=== PATIENT | male | born 1960 | race Caucasian/White ===

== ENCOUNTER 2022-04-24 15:49 | Inpatient (IN) | payer OTHER, SELFPAY ==
[2022-04-24] VITALS (16 sets, daily range): BP systolic 108–151; BP diastolic 65–112; PULSE 89–117; RESP 16–36; TEMP 36.4–36.8; O2SAT 78–100; BMI 25.2
--- NOTE | 2022-04-24 15:55 | XRR_ITS ---
PROCEDURE INFORMATION: Exam: XR Chest Exam date and time: 04/24/2022 5:34 PM Age: 61 years old Clinical indication: Cough and dyspnea; Additional info: Dyspnea/cough TECHNIQUE: Imaging protocol: Radiologic exam of the chest. Views: 1 view. COMPARISON: No relevant prior studies available. FINDINGS: Tubes, catheters and devices: Right chest port terminates at the cavoatrial junction. Lungs: Unremarkable. No consolidation. Pleural spaces: Unremarkable. No pleural effusion. No pneumothorax. Heart/Mediastinum: Unremarkable. No cardiomegaly. Bones/joints: Unremarkable. XR/XR chest 1V portable [id number] IMPRESSION: No acute findings.
--- NOTE | 2022-04-24 16:12 | ECG_ITS ---
[facility] Test Date: 2022-04-24 Pat Name: Eamon Sawant Department: Room: Gender: Male Property Site Manager: : 1960 Requested By: Roderick Lackey Order Number: [id number] Micaela MD: Светлана Thornton M.D. Measurements Intervals [place] Rate: 103 P: 82 AL: 154 QRS: 84 QRSD: 89 T: 70 QT: 315 QTc: 414 Interpretive Statements SINUS TACHYCARDIA ABNORMAL RHYTHM ECG No previous ECG available for comparison Electronically Signed On 04-24-2022 20:38:07 CALCULATION REVIEWER by Светлана Thornton M.D. [id number]
[2022-04-24] MEDS: sodium chloride 0.9% 1,000 ML 999 ML IV ×2 (16:22→17:59)
[2022-04-24 16:47] LABS: Basophils # 0.1 10^3/uL (0.0-0.1); Basophils % 0.5 %; Eosinophils # 0.1 10^3/uL (0.0-0.8); Eosinophils % 0.6 %; Hematocrit 31.4 % (42.0-52.0); Hemoglobin 9.2 g/dL (11.7-16.6); Lymphocytes % 7.8 %; Mean Corpuscular HGB Conc 29.3 g/dL (30.0-36.0); Mean Corpuscular Volume 78.5 fl (80-94); Mean Platelet Volume 9.1 fL (7.4-10.4); Monocytes # 0.5 10^3/uL (0.2-0.9); Monocytes % 3.8 %; Neutrophils # 10.93 10^3/uL (1.8-7.7); Neutrophils % 86.7 %; Nucleated Red Blood Cells % 0 %; Platelet Count 563 10^3/cmm (130-400); Red Cell Distribution Width 16.7 % (12.1-15.1); White Blood Count 12.6 10^3/uL (4.0-10.0)
[2022-04-24 17:25] LABS: Alanine Aminotransferase 18 U/L (0-41); Alkaline Phosphatase 189 U/L (40-130); Aspartate Amino Transferase 30 U/L (0-40); Blood Urea Nitrogen 18 mg/dL (8-23); Calcium 11.5 mg/dL (8.5-10.5); Carbon Dioxide 26 mmol/L (22-29); Chloride 96 mmol/L (98-107); Globulin 4.7 g/dL (1.3-4.6); Glomerular Filtration Rate 68.1 mL/min (90-130); Glucose 112 mg/dL (65-115); Lipase 7 U/L (13-60); Osmolality Calculated 277 mOsm/kg (285-295); Sodium 132 mmol/L (136-145); Total Bilirubin 0.3 mg/dL (0.15-1.2); Total Protein 7.7 g/dL (6.6-8.7)
--- NOTE | 2022-04-24 17:27 | W.ED.GENADLT ---
HPI - General Adult General: Chief complaint: Altered Mental Status Stated complaint: AMS Time Seen by Provider: 04/24/22 15:51 Source: patient Mode of arrival: ambulatory History of Present Illness: 61-year-old male presents to the emergency room from home with hospice. Had evidently been cared for by a family member who was killed in a car accident yesterday the hospice nurse came to check on the patient and found the patient on the floor and evidently been there for nearly 24 hours. He has a fentanyl patch and he has been using oxycodone. He has a history of HPV penile cancer which she has evidently opted not to treat. He is on hospice for this. Hospice nurse present in the ER states last time she seen the patient was 4 days ago. EMS reported they took the fentanyl patch off when they arrived there. They also reported a nearly empty bottle of narcotics nearby. Onset (ago): unknown Review of Systems General: Reports: ROS unobtainable due to mental status PFSH ED PFSH: Medical History (Updated 04/25/22 @ 07:39 by Roderick Yip DO) GERD (gastroesophageal reflux disease) HPV in male Penile cancer Physical deconditioning Restless leg Surgical History (Updated 04/24/22 @ 20:58 by Radha Pena MD) Surgical history unknown Family History (Updated 04/24/22 @ 20:58 by Radha Pena MD) Denies family history of Chronic kidney disease (CKD) Social History (Updated 04/24/22 @ 20:58 by Radha Pena MD) Smoking and tobacco status: unknown if ever smoked Alcohol intake: unknown Substance/Drug Use: unknown Physical Exam HENMT: COMMON NORMALS: normocephalic, atraumatic and hearing grossly normal bilaterally HEAD & SCALP: normocephalic and atraumatic Resp: COMMON NORMALS: normal respiratory effort, No retractions, No use of accessory muscles and clear to auscultation bilaterally AUSCULTATION: clear to auscultation bilaterally Cardio: COMMON NORMALS: regular rate, regular rhythm and No murmurs present (Cardio) RATE: regular rate RHYTHM: regular rhythm GI: COMMON NORMALS: Soft to palpation and No hepatosplenomegaly present AUSCULTATION: Yes normoactive bowel sounds PALPATION: Yes Soft to palpation, No Tenderness to palpation present (GI), No Guarding due to palpation present (GI) and Yes No hepatosplenomegaly present : COMMON NORMALS: No no CVA tenderness BLADDER/KIDNEY EXAM: No no CVA tenderness Back/Pelvis: COMMON NORMALS: negative for no CVA tenderness OTHER: Stage I presacral ulcer. 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 Extremity: COMMON NORMALS: normal to inspection, capillary refill normal, no clubbing, cyanosis or edema, no calf tenderness and no pedal edema Skin: COMMON NORMALS: no rashes or lesions noted GENERAL SKIN EXAM: no rashes or lesions noted Course Vital Signs: Vital signs: Vital Signs Temperature 98.6 F 04/25/22 04:15 Pulse Rate 96 04/25/22 04:15 Respiratory Rate 20 H 04/25/22 04:15 Blood Pressure 125/72 04/25/22 04:15 Pulse Oximetry 95 04/25/22 04:15 Oxygen Delivery Me thod 04/25/22 04:15 Oxygen Flow Rate 3 04/24/22 16:30 MDM - General Adult Medical Decision [facility] was een by the hospice nurse last week and was ambulatory and verbal. His vitals are stable in the ER. I have not given narcan since the vitals are stable. Discussed with his daughter via phone. Patient is Do Not Recussitate. At this point after discussion we recommended admission observation IV fluids. Because of the distortion of the tissue of the penis symptoms we will be able to get an adequate urine sample. Discussed the hospitalist Dr. Geiger asked that we start Rocephin prophylactically cultures were drawn. Anticipate if he did take too much of the narcotics he should improve with time he stable with the oxygen support at this point so we can just observe if he does not improve can reassess. Daughter does not wish to have any aggressive interventions at this point. She does admit that recently he has made comments about harming himself. This occurred after he found out a lifelong friend who is his primary caregiver at this point had of a car accident the day before. There is a distinct possibility this may have been an intentional overdose. Medical Records I reviewed the patient's medical records. Lab Data I reviewed the patient's lab results. 04/24/22 16:20 04/24/22 16:20 Radiology Impressions Chest X-Ray 04/24/22 15:55 IMPRESSION: No acute findings. Head CT 04/24/22 17:54 IMPRESSION: 1. No acute intracranial abnormality. 2. Advanced diffuse cerebral atrophy. 3. 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 Laboratory Results WBC 12.6 10^3/uL (4.0-10.0) H 04/24/22 16:20 RBC 4.00 10^6/uL (4.1-5.3) L 04/24/22 16:20 Hgb 9.2 g/dL (11.7-16.6) L 04/24/22 16:20 Hct 31.4 % (42.0-52.0) L 04/24/22 16:20 MCV 78.5 fl (80-94) L 04/24/22 16:20 MCH 23.0 pg (28.0-34.0) L 04/24/22 16:20 MCHC 29.3 g/dL (30.0-36.0) L 04/24/22 16:20 RDW 16.7 % (12.1-15.1) H 04/24/22 16:20 Plt Count 563 10^3/cmm (130-400) H 04/24/22 16:20 MPV 9.1 fL (7.4-10.4) 04/24/22 16:20 Neut % (Auto) 86.7 % 04/24/22 16:20 Lymph % (Auto) 7.8 % 04/24/22 16:20 Tripp % (Auto) 3.8 % 04/24/22 16:20 Eos % (Auto) 0.6 % 04/24/22 16:20 Baso % (Auto) 0.5 % 04/24/22 16:20 Neut # (Auto) 10.93 10^3/uL (1.8-7.7) H 04/24/22 16:20 Lymph # (Auto) 1.0 10^3/uL (0.8-4.8) 04/24/22 16:20 Tripp # (Auto) 0.5 10^3/uL (0.2-0.9) 04/24/22 16:20 Eos # (Auto) 0.1 10^3/uL (0.0-0.8) 04/24/22 16:20 Baso # (Auto) 0.1 10^3/uL (0.0-0.1) 04/24/22 16:20 Nucleated RBC % (auto) 0 % 04/24/22 16:20 Nucleated RBCs # 0.0 /100WBC 04/24/22 16:20 Sodium 132 mmol/L (136-145) L 04/24/22 16:20 Potassium 4.0 mmol/L (3.5-5.1) 04/24/22 16:20 Chloride 96 mmol/L (98-107) L 04/24/22 16:20 Carbon Dioxide 26 mmol/L (22-29) 04/24/22 16:20 Anion Gap 14.0 (5-19) 04/24/22 16:20 BUN 18 mg/dL (8-23) 04/24/22 16:20 Creatinine 1.1 mg/dL (0.7-1.2) 04/24/22 16:20 GFR Calculation 68.1 mL/min (90-130) L 04/24/22 16:20 Glucose 112 mg/dL (65-115) 04/24/22 16:20 Calculated Osmolality 277 mOsm/kg (285-295) L 04/24/22 16:20 Calcium 11.5 mg/dL (8.5-10.5) H 04/24/22 16:20 Magnesium 2.0 mg/dL (1.7-2.3) 04/24/22 16:20 Total Bilirubin 0.3 mg/dL (0.15-1.2) 04/24/22 16:20 AST 30 U/L (0-40) 04/24/22 16:20 ALT 18 U/L (0-41) 04/24/22 16:20 Alkaline Phosphatase 189 U/L (40-130) H 04/24/22 16:20 Creatine Kinase 390 U/L (39-308) H* 04/24/22 16:20 Total Protein 7.7 g/dL (6.6-8.7) 04/24/22 16:20 Albumin 3.0 g/dL (3.5-5.2) L 04/24/22 16:20 Globulin 4.7 g/dL (1.3-4.6) H 04/24/22 16:20 Lipase 7 U/L (13-60) L 04/24/22 16:20 Procalcitonin 0.20 ng/mL (0-0.5) 04/24/22 16:20 Discharge Plan Discharge Patient Disposition: Admitted As Inpatient Admit Provider: Augusto Carey Clinical Impression: Delirium due to general medical condition, Metabolic encephalopathy, HPV in male, Hospice care, Metastasis to bone, Metastasis to lymph nodes Condition: Stable Coding Level of Care Code ED Financial Services Sales Representative for Chg Fwd Exam Detailed
[2022-04-24 17:33] LABS: Creatine Phosphokinase 390 U/L (39-308)
--- NOTE | 2022-04-24 17:54 | CTR_ITS ---
PROCEDURE INFORMATION: Exam: CT Head Without Contrast Exam date and time: 04/24/2022 6:06 PM Age: 61 years old Clinical indication: Altered mental status/memory loss; Patient HX: Patient found on the floor at home by hospice nurse. Patient non-verbal. No further history. ; Additional info: AMS TECHNIQUE: Imaging protocol: Computed tomography of the head without contrast. Radiation optimization: All CT scans at this facility use at least one of these dose optimization techniques: automated exposure control; mA and/or kV adjustment per patient size (includes targeted exams where dose is matched to clinical indication); or iterative reconstruction. COMPARISON: No relevant prior studies available. RADIATION DOSE METRICS: Total DLP (mGy-cm): 1107.23 FINDINGS: Brain: No hemorrhage. No edema. Advanced diffuse cerebral atrophy. 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 No mass effect. Cerebral ventricles: No ventriculomegaly. Paranasal sinuses: Visualized sinuses are unremarkable. No fluid levels. Mastoid air cells: Visualized mastoid air cells are well aerated. Bones/joints: Unremarkable. No acute fracture. Soft tissues: Unremarkable. CT/CT head wo con* [id number] IMPRESSION: 1. No acute intracranial abnormality. 2. Advanced diffuse cerebral atrophy. 3. 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
[2022-04-24] MEDS: cefTRIAXone 1,000 MG in sodium chloride 0.9% (plus) 50 ML 100 MG IV (18:42)
--- NOTE | 2022-04-24 19:13 | PM.HP ---
Providers/Chief Complaint Primary Care Provider: MARIA VICTORIA Newman Chief Complaint: AMS History of Present Illness Eamon Sawant is a 61 year old male who was sent to the hospital when daughter was not able to get in touch with him, patient has penile cancer, he was living with a senior physician who recently in a car accident. When I examined the patient there was a hospice nurse in the room, she is stating that patient normally is able to talk, able to eat on his own and walk without much assistance, recently he has become very fatigued and lethargic and bedbound that prompted his visit to the ER As per the hospice nurse patient mostly voids on his own, now family is requesting long-term placement with hospice At the time of my evaluation patient was able to tell me his name and state that he is feeling slightly better, he is still drowsy not able to provide much information Review of Systems General: Reports: ROS unobtainable due to medical condition Medications/Allergies Home Medications Medication Instructions Recorded Confirmed Last Taken Type bisacodyl 10 mg rectal suppository 10 mg NE DAILY PRN Constipation 04/24/22 04/24/22 Unknown History docusate sodium 100 mg capsule 200 mg PO BID PRN Constipation 04/24/22 04/24/22 Unknown History fentanyl 50 mcg/hr transdermal 50 mcg topical Q72H 04/24/22 04/24/22 Unknown History patch hydromorphone 4 mg tablet 4 - 8 mg PO Q4H PRN Pain 04/24/22 04/24/22 Unknown History lidocaine 4 % topical cream 1 applic topical DAILY PRN Pain 04/24/22 04/24/22 Unknown History (Anecream) loperamide 2 mg tablet 2 mg PO Q4H PRN Diarrhea 04/24/22 04/24/22 Unknown History magnesium citrate 300 ml PO DAILY PRN Constipation 04/24/22 04/24/22 Unknown History methylphenidate HCl 10 mg tablet 10 mg PO TID 04/24/22 04/24/22 Unknown History (Ritalin) morphine concentrate 100 mg/5 mL 5 - 20 mg PO Q1H PRN Pain 04/24/22 04/24/22 Unknown History (20 mg/mL) oral solution omeprazole 40 mg capsule,delayed 40 mg PO DAILY 04/24/22 04/24/22 Unknown History release polyethylene glycol 3350 17 17 g PO BID 04/24/22 04/24/22 Unknown History gram/dose oral powder (Miralax) sennosides 8.6 mg tablet (Kyra-annetta) 8.6 mg PO BID PRN Constipation 04/24/22 04/24/22 Unknown History Allergies Allergy/AdvReac Type Severity Reaction Status Date / Time iodine Allergy Unknown Unknown Verified 04/24/22 18:48 PFSH Acute PFSH: Medical History (Updated 04/24/22 @ 20:58 by Radha Pena MD) GERD (gastroesophageal reflux disease) HPV in male Penile cancer Physical deconditioning Restless leg Surgical History (Updated 04/24/22 @ 20:58 by Radha Pena MD) Surgical history unknown Family History (Updated 04/24/22 @ 20:58 by Radha Pena MD) Denies family history of Chronic kidney disease (CKD) Social History (Updated 04/24/22 @ 20:58 by Radha Pena MD) Smoking and tobacco status: unknown if ever smoked Alcohol intake: unknown Substance/Drug Use: unknown Vitals/I&O/Wt Last Vital Signs Temp 97.8 F 04/24/22 15:51 Pulse 90 04/24/22 19:03 Resp 24 H 04/24/22 19:03 BP 142/69 04/24/22 19:03 Pulse Ox 100 04/24/22 19:03 O2 Del Method 04/24/22 19:03 O2 Flow Rate 3 04/24/22 16:30 04/24/22 04/24/22 04/24/22 06:59 14:59 22:59 Intake Total 1000 / 1000 Balance 1000 / 1000 Weight last 48 hrs Weight 73.028 kg Physical Exam Narrative: Patient is debilitated, deconditioned Able to move his extremities Able to answer a few questions He was able to tell me his name and state that he is feeling slightly better Pupils are equal I did not notice asymmetry Abdomen soft however indurated abdominal wall with multiple warts, his warts were all filled with purulent material and urine Penile cancer cauliflower appearance Lower extremity no edema Patient looks dehydrated Oriented to himself S1, S2 On room air Data 04/24/22 16:20 04/24/22 16:20 A&P Assessment and plan (1) Hospice care: (2) Metabolic encephalopathy: (3) Metastasis to bone: (4) Metastasis to lymph nodes: Plan Metabolic encephalopathy Most likely related to underlying UTI Urine sample could not be obtained because of penile cancer Patient is voiding all over himself Purulent material noted lower abdominal wall Purulent cellulitis of abdominal wall I will start him on vancomycin and cefepime Start hospice care Keep him comfortable with opioids and bowel regimen Start IV fluids Case management to find a long-term for him with hospice Comfort measures only Attestations Medical Necessity Statement*: Anticipating discharge to long-term in next 48 hours Time Spent in Patient Care: 40 Coding Level of Care Code Acute Transfer Worker for g Fwd Diagnoses Hospice care Z51.5 Metabolic encephalopathy G93.41 Metastasis to bone C79.51 Metastasis to lymph nodes C77.9
[2022-04-24] MEDS: cefepime 1,000 MG in sodium chloride 0.9% (plus) 50 ML 100 MG IV (22:08)
[2022-04-24] MEDS: fentaNYL 50 mcg Patch 1 PATCH TRANSDERMA (22:08)
[2022-04-24] MEDS: morphine 10 mg/0.5 mL oral liq UD 5 MG PO (22:16)
[2022-04-24] MEDS: vancomycin 1,000 MG in sodium chloride 0.9% 250 ML 250 MG IV (22:49)
[2022-04-24] MEDS: dextrose 5%-sod chloride 0.45% 1,000 ML 100 ML IV (23:54)
[2022-04-25 04:15] VITALS: BP 125/72; PULSE 96; RESP 20; TEMP 37; O2SAT 95
[2022-04-25 07:52] VITALS: BP 129/75; PULSE 101; RESP 20; TEMP 36.7
--- NOTE | 2022-04-25 10:16 | PC.CHAP ---
Pastoral Care Encounter/Spiritual Assessment Type of Contact [] Declined hand bunch maker visit [] Patient/Family/Request visit [] Outpatient visit [] Follow-up visit [] Physician referral [] Code/Alert [x] Routine visit [] Staff referral [] Actively dying [x] Patient sleeping [] Family support [] [] Out of room [] Palliative care [] [] Receiving care in room [] Pre-surgical visit [] Trauma [] Long length of stay [] ICU visit [] Other: Relational/Emotional Strength [] Patient feels connected with others/family/visitors/staff [] Distress [] Loneliness/isolation [] Abandonment Spirituality of Patient [] Person of Sruthi [] Attends Zoroastrianism of their Sruthi [] Believes in Prayer [] Reads Bible or Yarsanism materials [] There are Spiritual issues to be addressed Transmission Maintenance Supervisor Interventions [] Prayer [] Active listening [] Non-anxious presence [] Spiritual/emotional support [] Crisis/trauma care [] Spiritual counseling [] Bereavement support [] Provided bereavement packet [] Provided Bible/devotional materials [] Provided toy/stuffed animal, coloring book to patient or family member [] Provided Communion [] Anointing/Harlan [] Salvation [] Completed spiritual assessment [] Other: Impact on Illness or Injury [] Angry [] Fearful [] Anxious [] Often cries [] Exhaustion [] Unable to work [] Unable to attend taoist [] Unable to walk/stand [] Unable to read [] Unable to drive [] Unable to eat/drink [] Unable to sleep [] Unable to be with family [] Patient intubated [] Other: Summary Time spent with patient
--- NOTE | 2022-04-25 10:27 | P.PN_ITS ---
Subjective Subjective: Patient is lethargic. He seems to deny any complaints including fevers, chills, chest pain or shortness of breath. Medications: Reviewed: Yes Vitals/I&O/Wt Last Vital Signs Temp 98.0 F 04/25/22 07:52 Pulse 101 H 04/25/22 07:52 Resp 20 H 04/25/22 07:52 BP 129/75 04/25/22 07:52 Pulse Ox 95 04/25/22 04:15 O2 Del Method 04/25/22 07:52 O2 Flow Rate 3 04/24/22 16:30 04/24/22 04/25/22 04/25/22 22:59 06:59 14:59 Intake Total 2099 250 / 2350 Output Total 0 / 0 Balance 2099 250 / 2350 Weight last 48 hrs Weight 73.142 kg Weight 73.028 kg Physical Exam Narrative: General: Patient is lethargic. Head: Normocephalic. Atraumatic. Neck: No JVD. Cardiovascular: No gallops. No murmurs. Tachycardic. Lungs: Breath sounds are course. Breath sounds diminished in bilateral bases. No use of accessory muscles, no crackles or wheezes. Skin: No jaundice. Abdomen: Hypoactive bowel sounds. Genito Urinary: Cancerous lesions with foul smelling drainage. Rectal: Rectal exam not performed since no symptoms indicated blood loss. Extremities: No cyanosis or clubbing. Musculoskeletal: Poor muscular development. Neurological: Moves all 4 extremities. No myoclonus. Data 04/24/22 16:20 04/24/22 16:20 Micro: Microbiology 04/24/22 19:00 Blood Culture - Preliminary Blood SPECIMEN COLLECTED A&P Assessment and plan (1) Penile cancer: HPV related Metastatic Apparently opted not to treat Previously on home hospice Caregiver is now Patient requires placement Comfort care measures (2) Delirium due to general medical condition: Reportedly not at baseline (3) Infection: Suspected inguinal/kaur area infection Change to oral antibiotics Follow up cultures (4) Metabolic encephalopathy: Frequent reorientation Antibiotics adjusted (5) Hospice care: Comfort care measures (6) Metastasis to lymph nodes: (7) Metastasis to bone: Plan Code status: DNR Attestations Medical Necessity Statement*: Patient requires ongoing medical care for titration of analgesics, antibiotics, and follow up cultures. Coding Level of Care Code Acute Research Technician for Chg Fwd Diagnoses Penile cancer C60.9 Delirium due to general medical condition F05 Infection B99.9 Metabolic encephalopathy G93.41 Hospice care Z51.5 Metastasis to lymph nodes C77.9 Metastasis to bone C79.51
[2022-04-25 11:35] VITALS: BP 126/65; PULSE 95; RESP 16; TEMP 36.7; O2SAT 100
[2022-04-25] MEDS: morphine 10 mg/0.5 mL oral liq UD 5 MG PO (13:18)
[2022-04-25 15:51] VITALS: BP 135/74; PULSE 107; RESP 16; TEMP 36.5; O2SAT 99
[2022-04-25] MEDS: doxycycline 100 mg Tablet PO (17:33)
[2022-04-25] MEDS: amoxicillin-clav 875-125 mg Tablet 1 TAB PO (17:33)
[2022-04-25 17:49] VITALS: RESP 17
[2022-04-25 20:00] VITALS: BP 113/65; PULSE 82; RESP 18; TEMP 36.9; O2SAT 95
[2022-04-26] VITALS (11 sets, daily range): BP systolic 114–125; BP diastolic 62–77; PULSE 79–103; RESP 16–18; TEMP 36.6–37.3; O2SAT 92–100
--- NOTE | 2022-04-26 07:03 | PC.NURSE ---
Report given to Chichi SCHAEFER at this time
--- NOTE | 2022-04-26 08:27 | PM.PN ---
Subjective Subjective: Patient is slightly more awake today. Much of his speech is difficult to comprehend at times. He denies any complaints. Denies nausea, emesis, fevers, or chills. Medications: Reviewed: Yes Vitals/I&O/Wt Last Vital Signs Temp 97.8 F 04/26/22 04:00 Pulse 100 04/26/22 04:00 Resp 18 04/26/22 04:00 BP 114/71 04/26/22 04:00 Pulse Ox 98 04/26/22 04:00 O2 Del Method 04/25/22 15:51 O2 Flow Rate 3 04/25/22 22:00 04/25/22 04/26/22 04/26/22 22:59 06:59 14:59 Intake Total 360 / 1260 Balance 360 / 1260 Weight last 48 hrs Weight 71.078 kg Weight 73.142 kg Weight 73.028 kg Physical Exam Narrative: General: Patient is awake. Frail appearing. Head: Normocephalic. Atraumatic. Neck: No JVD. Cardiovascular: No gallops. No murmurs. Tachycardic. Lungs: Breath sounds are course. Breath sounds diminished in bilateral bases. No use of accessory muscles, no crackles or wheezes. Skin: No jaundice. Abdomen: Normoactive bowel sounds. Not distended. Genito Urinary: Cancerous lesions with foul smelling drainage, similiar to prior exam. Rectal: Rectal exam not performed since no symptoms indicated blood loss. Extremities: No cyanosis or clubbing. Musculoskeletal: Poor muscular development. Neurological: Moves all 4 extremities. No myoclonus. Data 04/24/22 16:20 04/24/22 16:20 Micro: Microbiology 04/24/22 19:00 Blood Culture - Preliminary Blood NEGATIVE TO DATE A&P Assessment and plan (1) Penile cancer: HPV related Metastatic Apparently opted not to treat Previously on home hospice Caregiver is now Patient requires placement Comfort care measures (2) Delirium due to general medical condition: Mentation showing some improvement (3) Infection: Inguinal/kaur area infection Continue antibiotics (4) Metabolic encephalopathy: Frequent reorientation Treating underlying infection (5) Hospice care: Comfort care measures (6) Metastasis to lymph nodes: (7) Metastasis to bone: Plan Code status: DNR Attestations Medical Necessity Statement*: Patient requires ongoing medical care for analgesics, antibiotics, and follow up cultures. Coding Level of Care Code Acute Incident Response Engineer for Chg Fwd Diagnoses Penile cancer C60.9 Delirium due to general medical condition F05 Infection B99.9 Metabolic encephalopathy G93.41 Hospice care Z51.5 Metastasis to lymph nodes C77.9 Metastasis to bone C79.51
[2022-04-26] MEDS: amoxicillin-clav 875-125 mg Tablet 1 TAB PO ×2 (09:33→17:58)
[2022-04-26] MEDS: doxycycline 100 mg Tablet PO ×2 (09:33→17:58)
[2022-04-26] MEDS: morphine 10 mg/0.5 mL oral liq UD 5 MG PO (11:10)
[2022-04-26] MEDS: morphine IR 15 mg Tablet PO ×3 (11:11→23:20)
[2022-04-26] MEDS: ALPRAZolam 0.5 mg Tablet PO ×2 (11:39→23:20)
[2022-04-26] MEDS: HYDROmorphone 1 mg/mL INJ 1 mL 3 MG PO (21:25)
[2022-04-27] VITALS: BP 121/68; PULSE 105; RESP 20; TEMP 36.8; O2SAT 97
[2022-04-27 04:00] VITALS: BP 103/63; PULSE 91; RESP 16; TEMP 36.7; O2SAT 100
--- NOTE | 2022-04-27 07:30 | P.PN_ITS ---
Subjective Subjective: Patient reports pain is better controlled after analgesic regimen was adjusted yesterday. Endorses generalized pruritis. Denies fevers, chills, chest pain, nausea, or emesis. Medications: Reviewed: Yes Vitals/I&O/Wt Last Vital Signs Temp 98.1 F 04/27/22 04:00 Pulse 91 04/27/22 04:00 Resp 16 04/27/22 04:00 BP 103/63 04/27/22 04:00 Pulse Ox 100 04/27/22 04:00 O2 Del Method 04/25/22 15:51 O2 Flow Rate 3 04/25/22 22:00 04/26/22 04/27/22 04/27/22 22:59 06:59 14:59 Intake Total 480 / 960 480 / 1440 Balance 480 / 960 480 / 1440 Weight last 48 hrs Weight 71.078 kg Physical Exam Narrative: General: Patient is awake. Frail appearing. Head: Normocephalic. Atraumatic. Neck: No JVD. Cardiovascular: No gallops. No murmurs. Normal rate. Lungs: Breath sounds are diminished in bilateral bases. No use of accessory muscles, no crackles or wheezes. Skin: No jaundice. Abdomen: Normoactive bowel sounds. Not distended. Genito Urinary: Cancerous lesions with foul smelling drainage, similiar to prior exams. Rectal: Rectal exam not performed since no symptoms indicated blood loss. Extremities: No cyanosis or clubbing. Musculoskeletal: Poor muscular development. Neurological: Moves all 4 extremities. No myoclonus. Data 04/24/22 16:20 04/24/22 16:20 A&P Assessment and plan (1) Penile cancer: HPV related, metastatic Patient opted not to treat Previously on home hospice Caregiver is now Patient requires placement Comfort care measures Fentanyl patch dosing adjusted Adjusting oral opiate dosing (2) Delirium due to general medical condition: Mentation improving, suspect now close to baseline (3) Infection: Inguinal/kaur area infection Continue Augmentin Continue doxycycline (4) Metabolic encephalopathy: Mentation approaching baseline Treating underlying infection (5) Hospice care: Comfort care measures (6) Metastasis to lymph nodes: (7) Metastasis to bone: Plan Code status: DNR Attestations Medical Necessity Statement*: Patient requires ongoing medical care for analgesics, antibiotics, and supportive care. Coding Level of Care Code Acute Livestock Rancher for Chg Fwd Diagnoses Penile cancer C60.9 Delirium due to general medical condition F05 Infection B99.9 Metabolic encephalopathy G93.41 Hospice care Z51.5 Metastasis to lymph nodes C77.9 Metastasis to bone C79.51
[2022-04-27 08:40] VITALS: BP 96/60; PULSE 87; RESP 16; TEMP 36.8; O2SAT 99
[2022-04-27] MEDS: amoxicillin-clav 875-125 mg Tablet 1 TAB PO (09:34)
[2022-04-27 09:45] VITALS: RESP 20
[2022-04-27] MEDS: HYDROmorphone 1 mg/mL INJ 1 mL 3 MG PO (09:45)
--- NOTE | 2022-04-27 09:51 | PC.CHAP ---
Pastoral Care Encounter/Spiritual Assessment Type of Contact [] Declined job training specialist visit [] Patient/Family/Request visit [] Outpatient visit [] Follow-up visit [] Physician referral [] Code/Alert [x] Routine visit [] Staff referral [] Actively dying [] Patient sleeping [] Family support [] [] Out of room [] Palliative care [] [x] Receiving care in room [] Pre-surgical visit [] Trauma [] Long length of stay [] ICU visit [] Other: Relational/Emotional Strength [] Patient feels connected with others/family/visitors/staff [] Distress [] Loneliness/isolation [] Abandonment Spirituality of Patient [] Person of Sruthi [] Attends Cheondoism of their Sruthi [] Believes in Prayer [] Reads Bible or Yarsanism materials [] There are Spiritual issues to be addressed Salt Operator Interventions [x] Prayer [] Active listening [] Non-anxious presence [] Spiritual/emotional support [] Crisis/trauma care [] Spiritual counseling [] Bereavement support [] Provided bereavement packet [] Provided Bible/devotional materials [] Provided toy/stuffed animal, coloring book to patient or family member [] Provided Communion [] Anointing/[place] [] Salvation [] Completed spiritual assessment [] Other: Impact on Illness or Injury [] Angry [] Fearful [] Anxious [] Often cries [] Exhaustion [] Unable to work [] Unable to attend moravian [] Unable to walk/stand [] Unable to read [] Unable to drive [] Unable to eat/drink [] Unable to sleep [] Unable to be with family [] Patient intubated [] Other: Summary Time spent with patient
[2022-04-27] MEDS: doxycycline 100 mg Tablet PO (10:17)
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
[2022-04-27 11:25] VITALS: BP 100/63; PULSE 99; RESP 16; TEMP 36.9; O2SAT 98
[2022-04-27 12:19] LABS: SARS Covid-2 Antigen negative (Negative)
[2022-04-27 16:00] VITALS: BP 120/70; PULSE 100; RESP 16; TEMP 36.8; O2SAT 100
== END 2022-04-27 16:57 | disposition hospice, home (50) | DRG 727 ==
LOC: ER 19:28 → MEDSURG 20:01
PROVIDERS: Internal Medicine; Admitting Provider Family Medicine; Emergency Provider Family Medicine; PCP Nurse Practitioner Family; Visit Provider Internal Medicine
DX: N48.22 Cellulitis of corpus cavernosum and penis (principal); G93.41 Metabolic encephalopathy; C77.9 Secondary and unspecified malignant neoplasm of lymph node, unspecified; C79.51 Secondary malignant neoplasm of bone; F05 Delirium due to known physiological condition; N48.29 Other inflammatory disorders of penis; C60.9 Malignant neoplasm of penis, unspecified; K21.9 Gastro-esophageal reflux disease without esophagitis; G25.81 Restless legs syndrome; Z51.5 Encounter for palliative care; Z79.891 Long term (current) use of opiate analgesic
CPT/HCPCS: 36415; 70450; 71045; 80053; 82550; 83690; 83735; 84145; 85025; 87040; 87426; 93005; 96361; 96365; 99285; G0378; J0692; J0696; J1170; J3370; J3411; J7030; J7050; J7799